=== PATIENT | male | born 1960 | race Hispanic/Latino ===

== ENCOUNTER 2020-08-03 21:43 | Observation (INO) | payer OTHER ==
[2020-08-03 22:17] LABS: #Eosinphils 0.1 thou/uL (0.0-0.7); #Monocytes 0.5 thou/uL (0.11-0.59); #Neutrophils 3.1 thou/uL (1.40-6.50); %Basophils 0.5 % (0.0-1.0); %Eosinophils 1.7 % (0.0-10.0); %Lymphocytes 35.2 % (21.0-51.0); %Neutrophils 53.5 % (42.0-75.0); Mean Corpuscular HGB CONC 34.4 g/dL (32.0-36.0); Mean Corpuscular Hemoglobin 30.6 pg (27.0-31.0); Mean Corpuscular Volume 88.8 fL (78.0-98.0); Mean Platelet Volume 7.9 fL (7.4-10.4); Platelet Count 250 thou/uL (130-400); RBC Distribution Width 12.9 % (11.5-14.5); Red Blood Cell (RBC) Count 4.92 mill/uL (4.70-6.10); White Blood Cell (WBC) Count 5.8 thou/uL (4.8-10.8)
--- NOTE | 2020-08-03 22:18 | RAD ---
Portable frontal chest radiograph: 08/03/2020 COMPARISON: None HISTORY: Chest pain, hypertension FINDINGS: Lungs are clear. Heart and mediastinal contours appear within normal limits. Mild increased linear interstitial density with mild pulmonary hyperinflation noted. IMPRESSION: No acute findings.
[2020-08-03 22:39] LABS: ALT (SGPT) 22 U/L (8-55); AST (SGOT) 18 U/L (5-34); Albumin 3.9 g/dL (3.5-5.0); Alkaline Phosphatase 69 U/L (40-110); Anion Gap 11 mmol/L (10-20); BUN (Urea Nitrogen) 12 mg/dL (8.4-25.7); Bilirubin, Total 0.6 mg/dL (0.2-1.2); Calc. Creatinine Clearance 0 mL/min (70-130); Calcium 8.8 mg/dL (7.8-10.44); Carbon Dioxide 24 mmol/L (22-29); Chloride 108 mmol/L (98-107); Estimated GFR-MDRD 79; Globulin 3.3 g/dL (2.4-3.5); Glucose 109 mg/dL (70-105); Potassium 3.6 mmol/L (3.5-5.1); Protein, Total 7.2 g/dL (6.0-8.3); Sodium 139 mmol/L (136-145)
[2020-08-03] MEDS ORDERED: Nitroglycerin 0.4 MG TAB (25 Tab Bottle) SL PRN (23:42)
--- NOTE | 2020-08-03 23:50 | PDOC.HHP ---
Hospitalist HPI - History of Present Illness Chest pain History of Present Illness: 59-year-old gentleman with a history of hypertension and hypothyroidism, COVID infection in April with hospitalization presented emergency department with a complaint of recurrent chest pain of about 1 week duration. Patient was hospitalized at [facility] overnight for chest pain 2 days ago and was told he has cardiomegaly and needs to see a supervisor pipelines. He was not discharged with any medication. The chest pain persisted and therefore presented here for further evaluation. Patient rated his chest pain at 9/10 in maximum severity, relieved by aspirin, associated with shortness of breath, no known aggravating factors. Chest pain radiates to involve the left arm. His initial troponin in the ED is negative. EKG shows no ischemic changes. Chest x-ray is unremarkable. Patient is placed under observation for chest pain rule out. Hospitalist ROS - Review of Systems Other: Except as documented, all other systems reviewed and negative. - Medication Medications: Medication Instructions Recorded Confirmed Type Atorvastatin Calcium [Lipitor] 20 mg PO HS 08/04/20 08/04/20 History Levothyroxine Sodium [Synthroid] 75 mcg PO DAILY 08/04/20 08/04/20 History Hospitalist History - Past Medical History Cardiac: reports: HTN Endocrine: reports: Hypothyroidism - Family History Family History: reports: diabetes mellitus (Mother) - Social History Smoking Status: Never smoker Alcohol: reports: Occassional Drugs: reports: none Living Situation: With Family - Exam General Appearance: NAD, awake alert Eye: PERRL, anicteric sclera ENT: normocephalic atraumatic, no oropharyngeal lesions, moist mucosa Neck: supple, symmetric, no JVD, no thyromegaly Heart: RRR, no murmur, no gallops, no rubs Respiratory: CTAB, no wheezes, no rales, no ronchi Gastrointestinal: soft, non-tender, non-distended, normal bowel sounds Extremities: no cyanosis, no edema Skin: normal turgor, no rashes Neurological: cranial nerve grossly intact, no weakness, no focal deficits Musculoskeletal: normal tone, normal strength Psychiatric: normal affect, normal behavior, A&O x 3 Hospitalist Results - Labs Result Diagrams: 08/03/20 22:08 08/03/20 22:08 Lab results: WBC 5.8 thou/uL (4.8-10.8) 08/03/20 22:08 Hgb 15.0 g/dL (14.0-18.0) 08/03/20 22:08 Hct 43.7 % (42.0-52.0) 08/03/20 22:08 MCV 88.8 fL (78.0-98.0) 08/03/20 22:08 Plt Count 250 thou/uL (130-400) 08/03/20 22:08 Neutrophils % 53.5 % (42.0-75.0) 08/03/20 22:08 Sodium 139 mmol/L (136-145) 08/03/20 22:08 Potassium 3.6 mmol/L (3.5-5.1) 08/03/20 22:08 Chloride 108 mmol/L (98-107) H 08/03/20 22:08 Carbon Dioxide 24 mmol/L (22-29) 08/03/20 22:08 BUN 12 mg/dL (8.4-25.7) 08/03/20 22:08 Creatinine 0.97 mg/dL (0.7-1.3) 08/03/20 22:08 Glucose 109 mg/dL (70-105) H 08/03/20 22:08 Calcium 8.8 mg/dL (7.8-10.44) 08/03/20 22:08 Total Bilirubin 0.6 mg/dL (0.2-1.2) 08/03/20 22:08 AST 18 U/L (5-34) 08/03/20 22:08 ALT 22 U/L (8-55) 08/03/20 22:08 Alkaline Phosphatase 69 U/L (40-110) 08/03/20 22:08 Troponin I Less than 0.010 ng/mL (< 0.028) 08/03/20 22:08 B-Natriuretic Peptide 11.6 pg/mL (0-100) 08/03/20 22:08 Serum Total Protein 7.2 g/dL (6.0-8.3) 08/03/20 22:08 Albumin 3.9 g/dL (3.5-5.0) 08/03/20 22:08 - Radiology Interpretation Chest x-ray Status: report reviewed by me (No acute findings.) Hospitalist H&P A/P - Problem (1) Chest pain Code(s): R07.9 - CHEST PAIN, UNSPECIFIED Status: Acute (2) Cardiomegaly Code(s): I51.7 - CARDIOMEGALY Status: Acute (3) Hypertension Code(s): I10 - ESSENTIAL (PRIMARY) HYPERTENSION Status: Chronic (4) Hypothyroidism Code(s): E03.9 - HYPOTHYROIDISM, UNSPECIFIED Status: Chronic - Plan Plan: Place patient under observation. Continue to trend troponin. Start aspirin. Continue home dose Lipitor. Check lipid profile Obtain echocardiogram given cardiomegaly. Nuclear stress test requested. Cardiology consult. Patient was mostly normotensive in the ED. monitor blood pressure. Bradycardia noted. Will use amlodipine as needed for blood pressure control.
[2020-08-04 00:25] VITALS: BMI 26.5
[2020-08-04 02:03] LABS: Troponin I 0.013 ng/mL (< 0.028)
[2020-08-04 05:43] LABS: Troponin I 0.015 ng/mL (< 0.028)
[2020-08-04] MEDS ORDERED: Aspirin 325 mg Enteric Coated Tablet PO SCH (09:00)
[2020-08-04] MEDS ORDERED: Enoxaparin Sodium 40 MG/0.4 ML SYRINGE SC SCH (09:00)
[2020-08-04] MEDS ORDERED: ADENOSINE 60 MG/20 ML VIAL ONE (09:20)
[2020-08-04 11:05] LABS: SARS-CoV-2 MS2 Positive; SARS-CoV-2 N Gene Negative; SARS-CoV-2 S Gene Negative; SARS-CoV-2 by NAA Not Detected (NotDetected); SARS-CoV-2 orf1ab Negative
--- NOTE | 2020-08-04 11:49 | NM ---
EXAM: Nuclear medicine cardiac perfusion examination with ejection fraction HISTORY: Chest pain TECHNIQUE: Rest images: 9.0 mCi technetium 99m sestamibi Stress images: 29.4 mCi of technetium 9M sestamibi; Adenosine COMPARISON: None FINDINGS: Tomographic images: No fixed or reversible perfusion defects. Gated images: Normal wall motion and ejection fraction of greater than 70%. EDV: 81 mL LHR: 0.4 TID: 1.1 IMPRESSION: No evidence of ischemia
[2020-08-04 15:57] VITALS: BP 130/81; TEMP 98
--- NOTE | 2020-08-04 22:27 | DIS ---
DATE OF ADMISSION: 08/03/2020 DATE OF DISCHARGE: 08/04/2020 DISCHARGE DIAGNOSES: 1. Chest pain, likely due to #2, noncardiac. 2. Gastroesophageal reflux disease. 3. Hypertension, stable. 4. Hypothyroidism, stable. CONSULTATIONS: None. PERTINENT LABORATORY AND X-RAY FINDINGS: Complete metabolic profile within normal limits. BNP 12. Troponin I negative x3. CBC within normal limits. COVID-19 PCR not detected 08/03/2020. Portable chest x-ray dated 08/03/2020 showed no acute cardiopulmonary process. Cardiolite stress test dated 08/04/2020 showed no evidence of reversible or fixed ischemia with calculated ejection fraction greater than 70%. 2D transthoracic echocardiogram dated 08/04/2020 showed ejection fraction of 60% to 65%. Normal exam. HOSPITAL COURSE: The patient was observed on the telemetry unit after presenting with chest pain. The patient underwent serial cardiac biomarkers, which were negative x3 proceeding to Cardiolite stress testing showing no evidence of reversible or fixed ischemia with calculated ejection fraction greater than 70%. 2D transthoracic echocardiogram was also performed showing overall preserved ejection fraction with structurally normal heart. The patient's presentation consistent with gastroesophageal reflux disease with recommendations to continue Nexium at home. Overall, the patient did remain clinically stable during the hospital course tolerating regular oral intake. I have examined the patient at the time of discharge and discussed followup instructions. The patient verbalizes his understanding and agreement, ready for discharge 08/04/2020. DISCHARGE MEDICATIONS: 1. Lisinopril 10 mg p.o. daily. 2. Synthroid 75 mcg p.o. daily. 3. Lipitor 20 mg p.o. at bedtime. 4. Nexium 40 mg p.o. daily. FOLLOWUP: The patient may follow up with his primary care provider in the [facility]. CONDITION ON DISCHARGE: Stable. ACTIVITY: Ad alexi. DIET: Heart healthy. CODE STATUS: Full. DISPOSITION: To home, 08/04/2020. Job ID: [id number]
== END 2020-08-04 18:00 | disposition home or self-care (01) ==
LOC: ERS 21:43 → 2SW 22:53
PROVIDERS: ADMIT Internal Medicine; ATTEND Internal Medicine
DX: R07.89 Other chest pain (principal); K21.9 Gastro-esophageal reflux disease without esophagitis; I10 Essential (primary) hypertension; E03.9 Hypothyroidism, unspecified; I51.7 Cardiomegaly; Z79.899 Other long term (current) drug therapy; Z86.19 Personal history of other infectious and parasitic diseases
CPT/HCPCS: 36415; 71045; 78452; 80053; 83880; 84484; 85025; 87635; 93005; 93017; 93306; 94760; 96372; A9500; G0378; J0153; J1650; U0003